=== PATIENT | female | born 1950 | race Caucasian/White ===

== ENCOUNTER → 2020-04-02 | Outpatient (CLI) | payer MEDICARE | END | disposition home or self-care (01) | LOC: RAH 12:59 | PROVIDERS: ATTEND Family Medicine | DX: M48.061 Spinal stenosis, lumbar region without neurogenic claudication (principal); M47.27 Other spondylosis with radiculopathy, lumbosacral region; K80.20 Calculus of gallbladder without cholecystitis without obstruction; N28.1 Cyst of kidney, acquired; K76.89 Other specified diseases of liver; M51.06 Intervertebral disc disorders with myelopathy, lumbar region; M41.86 Other forms of scoliosis, lumbar region | CPT/HCPCS: 72148 ==

== ENCOUNTER 2020-05-10 10:00 | Inpatient (IN) | payer MEDICARE ==
[~2020-05-10] VITALS: Ht 162.6 cm; Wt 84.8 kg
[2020-05-16 10:46] LABS: BASOPHILS % (AUTO) 0.6 % (0.0-5.0); EOSINOPHILS % (AUTO) 1.6 % (0.0-8.0); HEMATOCRIT 43.1 % (36-48); MEAN CORPUSCULAR HEMOGLOBIN 30.1 pg (27.0-33.0); MEAN CORPUSCULAR HGB CONC 32.7 g/dL (32.0-36.0); MEAN CORPUSCULAR VOLUME 92.1 fL (79-99); MONOCYTES % (AUTO) 7.7 % (3.0-13.0); NEUTROPHILS % (AUTO) 57.8 % (40.0-77.0); PLATELET COUNT (AUTO) 228 K/uL (130-400); RED BLOOD CELL COUNT(AUTO) 4.68 MIL/uL (4.00-5.50); RED CELL DISTRIBUTION WIDTH 13.2 % (11.0-15.5); WHITE BLOOD COUNT (AUTO) 6.2 K/uL (4.8-10.8)
[2020-05-16 11:01] LABS: CREATININE 0.7 mg/dL (0.5-1.5); POTASSIUM 4.1 mmol/L (3.5-5.1)
[2020-05-21 09:27] VITALS: BP 154/77
[2020-05-21] MEDS ORDERED: GABA300C PO (13:27)
[2020-05-21] MEDS ORDERED: BIOTIN PO (13:27)
[2020-05-21] MEDS ORDERED: ATOR10TA69 PO (13:27)
[2020-05-21] MEDS ORDERED: CBD OIL PO (13:27)
[2020-05-21] MEDS ORDERED: AEC81 PO (13:27)
[2020-05-22] VITALS (24 sets, daily range): BP systolic 81–149; BP diastolic 38–96
[2020-05-22] MEDS ORDERED: 0.9%NACL 1000ML 1,000 ML IV ONE (05:46)
[2020-05-22] MEDS ORDERED: CEFAZOLIN SODIUM 1 GM VIAL ONE ×5 (05:46→21:15)
[2020-05-22] MEDS: CEFAZOLIN SODIUM 1 GM VIAL IVP ONE ×2 (06:31→08:00)
[2020-05-22] MEDS ORDERED: THROMBIN-JMI 20000 UNIT KIT TP ONE (06:50)
[2020-05-22] MEDS ORDERED: LIDOCAINE PF 100MG/5ML (2%) SYRINGE 5ML ONE (06:56)
[2020-05-22] MEDS ORDERED: SUCCINYLCHOLINE CHLORIDE 20 MG/ML 10 ML VIAL ONE (06:56)
[2020-05-22] MEDS ORDERED: PROPOFOL 10 MG/ML 20ML VIAL IV ONE ×2 (06:57→10:31)
[2020-05-22] MEDS ORDERED: MIDAZOLAM HCL 1 MG/ML 2ML VIAL ONE (06:57)
[2020-05-22] MEDS ORDERED: GLYCOPYRROLATE 1 MG/5 ML SYRINGE ONE (06:57)
[2020-05-22] MEDS ORDERED: DEXAMETHASONE SOD PHOSPHATE 10MG/ML 1ML VIAL ONE (06:57)
[2020-05-22] MEDS ORDERED: ONDANSETRON 4MG INJ ONE (06:57)
[2020-05-22] MEDS ORDERED: ROCURONIUM 10MG/1ML SYR 10 MG/ML ML ONE (06:57)
[2020-05-22] MEDS ORDERED: NEOSTIGMINE 5MG/5ML SYR IV ONE (06:57)
[2020-05-22] MEDS ORDERED: FENTANYL CITRATE PF 50 MCG/1 ML 2ML VIAL ONE ×4 (06:58→10:30)
[2020-05-22] MEDS ORDERED: DEXAMETHASONE SOD PHOSPHATE 4 MG/ML 1ML VIAL ONE (06:58)
[2020-05-22] MEDS ORDERED: PROPOFOL 1000 MG/100 ML 100 ML IV ONE ×2 (07:25→11:33)
[2020-05-22] MEDS: BUPIVACAINE/EPI/PF 0.25% 30ML VIAL IJ SCH ×2 (07:30→07:45)
[2020-05-22] MEDS ORDERED: MANNITOL 20% 500ML BAG 500 ML IV ONE (07:48)
[2020-05-22] MEDS ORDERED: GENTAMICIN 80 MG/NS 100 ML PB 100 ML IV ONE (09:57)
[2020-05-22] MEDS ORDERED: ALBUMIN (HUMAN) 5% 250 ML IV ONE (09:58)
[2020-05-22] MEDS ORDERED: CEFAZOLIN SODIUM 1 GM VIAL IVP ONE (12:00)
[2020-05-22] MEDS ORDERED: 0.9%NACL 10ML VIAL IVP PRN (12:45)
[2020-05-22] MEDS: LACTATED RINGERS 1000ML 1,000 ML IV SCH (12:45)
[2020-05-22] MEDS ORDERED: HYDROCODONE/ACETAMINOPHEN 5/325 MG TAB PO PRN (12:45)
[2020-05-22] MEDS ORDERED: CBD OIL PO PRN (12:45)
[2020-05-22] MEDS: DEXAMETHASONE SOD PHOSPHATE 4 MG/ML 1ML VIAL IVP SCH ×3 (12:45→23:39)
[2020-05-22] MEDS: PHARMACY COMMUNICATION MISC SCH ×3 (14:15→21:23)
[2020-05-22] MEDS: GABAPENTIN 300 MG CAPSULE PO SCH ×2 (15:15→21:12)
[2020-05-22] MEDS: MORPHINE 2 MG SYG IVP PRN ×3 (15:16→19:43)
[2020-05-22] MEDS: PROMETHAZINE HCL 25 MG/ML 1ML AMPULE IM PRN (17:21)
[2020-05-22] MEDS ORDERED: CEFAZOLIN SODIUM 1 GM VIAL IVP SCH (20:00)
[2020-05-22] MEDS ORDERED: ATORVASTATIN 10 MG TABLET PO SCH (21:00)
[2020-05-23] MEDS: PROMETHAZINE HCL 25 MG/ML 1ML AMPULE IM PRN (00:04)
[2020-05-23] MEDS: PHARMACY COMMUNICATION MISC SCH ×4 (02:15→14:15)
[2020-05-23] MEDS: LACTATED RINGERS 1000ML 1,000 ML IV SCH (03:31)
[2020-05-23 04:00] VITALS: BP 95/46
[2020-05-23] MEDS: DEXAMETHASONE SOD PHOSPHATE 4 MG/ML 1ML VIAL IVP SCH ×2 (05:27→14:36)
[2020-05-23 08:18] VITALS: BP 98/41
[2020-05-23] MEDS ORDERED: ASPIRIN 81 MG EC TAB PO SCH (09:00)
[2020-05-23] MEDS: MORPHINE 2 MG SYG IVP PRN (10:16)
[2020-05-23] MEDS: GABAPENTIN 300 MG CAPSULE PO SCH ×2 (10:18→14:36)
[2020-05-23 12:32] VITALS: BP 108/55
== END 2020-05-23 18:20 | disposition home or self-care (01) | DRG 30 ==
LOC: EDSTATUS 10:00 → DAHIP 05-22 05:53 → 3BH 05-22 14:24
PROVIDERS: ADMIT Neurological Surgery; ATTEND Neurological Surgery
PROC: 00BT0ZZ Excision of Spinal Meninges, Open Approach (ICD-10-PCS; principal; 2020-05-22 07:30)
PROC: 4A11X4G Monitoring of Peripheral Nervous Electrical Activity, Intraoperative, External Approach (ICD-10-PCS; 2020-05-22 07:30)
PROC: 0PB40ZZ Excision of Thoracic Vertebra, Open Approach (ICD-10-PCS; 2020-05-22 07:30)
DX: D32.1 Benign neoplasm of spinal meninges (principal); E11.9 Type 2 diabetes mellitus without complications; R20.2 Paresthesia of skin; K21.9 Gastro-esophageal reflux disease without esophagitis; G89.29 Other chronic pain; R26.81 Unsteadiness on feet; E66.9 Obesity, unspecified; G47.33 Obstructive sleep apnea (adult) (pediatric); Z20.822 Contact with and (suspected) exposure to COVID-19; I10 Essential (primary) hypertension; Z90.710 Acquired absence of both cervix and uterus; Z79.82 Long term (current) use of aspirin; Z90.49 Acquired absence of other specified parts of digestive tract; Z68.32 Body mass index [BMI] 32.0-32.9, adult
CPT/HCPCS: 36415; 72110; 76998; 80048; 82948; 85025; 88307; 88331; 88341; 88342; 88360; A4344; G0378; J0330; J0690; J1100; J1580; J2001; J2250; J2405; J2550; J2704; J2710; J3010; J3490; J7030; J7120; P9045; U0003

== ENCOUNTER → 2022-02-26 | Outpatient (CLI) | payer MEDICARE ==
[~2022-02-26] MED LIST: AEC81 PO; ATOR10TA69 PO; BIOTIN PO; CBD OIL PO; GABA300C PO; GADOTERATE MEGLUMINE 10 MMOL/20 ML VIAL IV ONE
== END | disposition home or self-care (01) ==
LOC: RAH 10:33
PROVIDERS: ATTEND Family Medicine
DX: D32.1 Benign neoplasm of spinal meninges (principal); D43.4 Neoplasm of uncertain behavior of spinal cord; N28.1 Cyst of kidney, acquired; M43.16 Spondylolisthesis, lumbar region; M47.816 Spondylosis without myelopathy or radiculopathy, lumbar region
CPT/HCPCS: 72158; 72157; A9575